=== PATIENT | male | born 1945 | race African-American/Black ===

== ENCOUNTER 2017-09-11 11:55 | Emergency (ER) | payer OTHER ==
[~2017-09-11 11:55] MED LIST: ALLO100 PO; AMIT25TA20 PO; ASPI81TA11 OR; BUME2TAB PO; COLC1TAB7 PO; HYDR50TA15 PO; LANTUSP SQ; LOSA50TA PO; METO50 PO; METO5TAB46 PO; NOVORP2 SQ; OMEP20TA39 PO; POTA20IN3 PO; ROSU40 PO; SERT100 PO
[2017-09-11 12:03] VITALS: BP 146/71; PULSE 91; RESP 20; TEMP 98.6; O2SAT 95
[2017-09-11] MEDS ORDERED: NOVOLOGP2 SQ (12:09)
[2017-09-11] MEDS ORDERED: LANTUS2P SQ (12:09)
[2017-09-11] MEDS ORDERED: UNKNOWN MEDS (12:09)
[2017-09-11 12:50] VITALS: BP 147/61; PULSE 71; RESP 20; O2SAT 98
[2017-09-11 12:52] LABS: AUTOMATED NEUTROPHIL # 5.8 TH/MM3 (1.8-7.7); BASOPHIL # 0.2 TH/MM3 (0-0.2); BASOPHIL % 1.8 % (0.0-2.0); EOSINOPHIL # 0.1 TH/MM3 (0-0.4); EOSINOPHIL % 1.2 % (0.0-4.0); HEMATOCRIT 43.8 % (39.0-51.0); HEMOGLOBIN 14.3 GM/DL (13.0-17.0); LYMPH % 23.1 % (9.0-44.0); MEAN CELL VOLUME 87.9 FL (80.0-100.0); MEAN CORPUSCULAR HEMOGLOBIN 28.6 PG (27.0-34.0); MEAN CORPUSCULAR HGB CONC 32.5 % (32.0-36.0); MONO % 5.5 % (0.0-8.0); MONOCYTE # 0.5 TH/MM3 (0-0.9); NEUT % 68.4 % (16.0-70.0); PLATELET COUNT 199 TH/MM3 (150-450); RED BLOOD COUNT 4.99 MIL/MM3 (4.50-5.90); RED CELL DISTRIBUTION WIDTH 13.8 % (11.6-17.2); WHITE BLOOD COUNT 8.6 TH/MM3 (4.0-11.0)
[2017-09-11 12:58] LABS: CHLORIDE 99 MEQ/L (98-107); SODIUM (NA) 136 MEQ/L (136-145)
[2017-09-11 13:02] LABS: ALBUMIN 3.2 GM/DL (3.4-5.0); BICARBONATE 29.9 MEQ/L (21.0-32.0); BLOOD UREA NITROGEN 27 MG/DL (7-18); CALCIUM 8.4 MG/DL (8.5-10.1); GLUCOSE,RANDOM 261 MG/DL (74-106)
[2017-09-11 13:05] LABS: ALT (GPT) 33 U/L (12-78); AST (GOT) 30 U/L (15-37); GLOMERULAR FILTRATION RATE 49 ML/MIN (>89)
[2017-09-11 13:07] LABS: TOTAL BILIRUBIN ADULT 0.4 MG/DL (0.2-1.0)
[2017-09-11 13:08] LABS: ALKALINE PHOSPHATASE 92 U/L (45-117)
[2017-09-11 13:10] LABS: TROPONIN I LESS THAN 0.02 NG/ML (0.02-0.05)
--- NOTE | 2017-09-11 13:24 | RADRPT ---
EXAM DATE/TIME: 09/11/2017 13:09 [facility] COMPARISON: CHEST SINGLE AP, April 23, 2016, 18:00. INDICATIONS : Right side pleuritic pain. MEDICAL HISTORY : Hypertension. Hypercholesterolemia. Diabetes mellitus type II. Arthritis. Sleep apnea.Prostate CA . Renal failure. SURGICAL HISTORY : Prostatectomy. ENCOUNTER: Initial ACUITY: 1 day PAIN SCORE: 8/10 LOCATION: Right chest FINDINGS: A single view of the chest demonstrates the lungs to be symmetrically aerated without evidence of mas s, infiltrate or effusion. The cardiomediastinal contours are unremarkable. Osseous structures are intact. CONCLUSION: The lungs are clear. Gerard Richard MD on September 11, 2017 at 13:23 Board Certified Radiologist. This report was verified electronically.
[2017-09-11 13:55] VITALS: BP 190/71; PULSE 82; RESP 20; O2SAT 96
[2017-09-11 14:29] VITALS: BP 149/65; PULSE 85; RESP 18; O2SAT 97
[2017-09-11] MEDS ORDERED: POTASSIUM CHLORIDE 10 MEQ CONTROLLED RELEASE TAB PO ONE (14:30)
[2017-09-11] MEDS ORDERED: IOHEXOL 350 MG/ML 10 ML VIAL (for RAD DIAG) IVCONTRAST ONE (15:10)
--- NOTE | 2017-09-11 15:30 | RADRPT ---
EXAM DATE/TIME: 09/11/2017 15:10 [facility] COMPARISON: No previous studies available for comparison. INDICATIONS : Right chest pain. Elevated D-dimer. IV CONTRAST: 65 cc Omnipaque 350 (iohexol) IV RADIATION DOSE: 19.77 CTDIvol (mGy) MEDICAL HISTORY : Renal failure, chronic. Myocardial infarction. Diabetes mellitus type 2.Hypertension. Seizures. Pros masterson cancer. SURGICAL HISTORY : Prostatectomy. ENCOUNTER: Initial ACUITY: 1 day PAIN SCALE: 6/10 LOCATION: Right chest TECHNIQUE: Volumetric scanning of the chest was performed using a pulmonary embolism protocol MIP images were re constructed. Using automated exposure control and adjustment of the mA and/or kV according to patien t size, radiation dose was kept as low as reasonably achievable to obtain optimal diagnostic quality images. DICOM format image data is available electronically for review and comparison. Follow-up recommendations for detected pulmonary nodules are based at a minimum on nodule size and pa tient risk factors according to Fleischner Society Guidelines. FINDINGS: PULMONARY ARTERIES: No filling defects are seen in the pulmonary arteries through the segmental level. LUNGS: Mild to moderate paraseptal emphysema. No significant focal parenchymal abnormality. PLEURAE: There is no pleural thickening or pleural effusion. MEDIASTINUM: There is good visualization of the great vessels of the middle mediastinum. No evidence of mediastin al or hilar adenopathy/mass. MUSCULOSKELETAL: Within normal limits for patient age. MISCELLANEOUS: The visualized upper abdominal organs demonstrate no acute abnormality. CONCLUSION: 1. No CT evidence for pulmonary embolism. 2. Mild to moderate paraseptal emphysema. 3. Otherwise, unremarkable CT examination of chest. Jose R Alvarado MD on September 11, 2017 at 15:25 Board Certified Radiologist. This report was verified electronically.
[2017-09-11 15:31] VITALS: BP 164/78; PULSE 88; RESP 20; O2SAT 95
--- NOTE | 2017-09-11 15:40 | PD ---
HPI Chief Complaint: Chest Pain Time Seen by Provider: 12:22 Travel History International Travel<30 days: No Contact w/Intl Traveler<30days: No Traveled to known affect area: No History of Present Illness HPI This 71-year-old male is complaining of right-sided chest pain. The pain is having has been present for about a week. It does get worse at times. It seems worse when he moves or when he takes a deep breath he has not been short of breath. He was a smoker many years ago but has not smoked for some time. He was a patient in the chest pain center couple of years ago and had a negative evaluation at that time. There is no history of heart disease. He did have some cough and congestion a week ago when he went to the [facility] and was put on an antibiotic and some cough medicine. PFSH Past Medical History Hx Anticoagulant Therapy: Yes (asa 81) Arthritis: Yes Asthma: No Autoimmune Disease: No Anxiety: No Depression: No Heart Rhythm Problems: No Cancer: Yes (PROSTATE) Cardiac Catheterization: No Cardiovascular Problems: Yes (htn on meds , [place] ?) High Cholesterol: Yes Chemotherapy: No Chest Pain: Yes Congestive Heart Failure: No COPD: No Cerebrovascular Accident: No Diabetes: Yes (type 2) Patient Takes Glucophage: No Diminished Hearing: No Endocrine: Yes Gastrointestinal Disorders: No Gout: Yes Genitourinary: Yes Hypertension: Yes Immune Disorder: No Implanted Vascular Access Dvce: No Kidney Stones: No Musculoskeletal: No Neurologic: No Psychiatric: Yes Reproductive: No Respiratory: Yes Migraines: Yes ( A CHILD) Myocardial Infarction: Yes Radiation Therapy: No Renal Failure: Yes (CRF) Seizures: Yes ([facility]) Sickle Cell Disease: No Sleep Apnea: Yes (prescribed CPAP) Thyroid Disease: No Past Surgical History Coronary Artery Bypass Graft: No Genitourinary Surgery: Yes (prostate cancer, prostatectomy) Joint Replacement: Yes Prostatectomy: Yes (W/REVISION) Other Surgery: Yes (right hand) Social History Alcohol Use: Yes (occas. mix drinks) Tobacco Use: No (QUIT 2001) Substance Use: No Allergies-Medications (Allergen,Severity, Reaction): Coded Allergies: Fish Containing Products (Unverified Allergy, Unknown, 09/11/17) Reported Meds & Prescriptions Reported Meds & Active Scripts Active Reported [Unknown Meds] Novolog Inj (Insulin Aspart) 1,000 Unit/10 Ml Vial 30 Units SQ TID Lantus Inj (Insulin Glargine) 1,000 Unit/10 Ml Vial 55 Units SQ TID Review of Systems General / Constitutional: No: Fever, Chills Eyes: No: Diploplia, Blurred Vision HENT: No: Headaches, Vertigo Cardiovascular: Positive: Chest Pain or Discomfort, No: Palpitations Respiratory: Positive: Pleuritic Pain, No: Cough, Shortness of Breath Gastrointestinal: No: Nausea, Vomiting Genitourinary: No: Urgency, Frequency Musculoskeletal: No: Myalgias Skin: No Rash, No Itching Endocrine: No: Heat Intolerance, Cold Intolerance Hematologic/Lymphatic: No: Easy Bruising Physical Exam Narrative GENERAL: Well-developed male SKIN: Focused skin assessment warm/dry. HEAD: Atraumatic. Normocephalic. EYES: Pupils equal and round. No scleral icterus. No injection or drainage. ENT: No nasal bleeding or discharge. Mucous membranes pink and moist. NECK: Trachea midline. No JVD. CARDIOVASCULAR: Regular rate and rhythm. No murmur appreciated. RESPIRATORY: No accessory muscle use. Clear to auscultation. Breath sounds equal bilaterally. There is some mild right-sided chest wall tenderness GASTROINTESTINAL: Abdomen soft, non-tender, nondistended. Hepatic and splenic margins not palpable. MUSCULOSKELETAL: No obvious deformities. No clubbing. No cyanosis. No edema. NEUROLOGICAL: Awake and alert. No obvious cranial nerve deficits. Motor grossly within normal limits. Normal speech. PSYCHIATRIC: Appropriate mood and affect; insight and judgment normal. Data Data Last Documented VS Vital Signs Date Time Temp Pulse Resp B/P (MAP) Pulse Ox O2 Delivery O2 Flow Rate FiO2 09/11/17 15:31 88 20 164/78 (106) 95 09/11/17 14:29 Room Air 09/11/17 12:03 98.6 Orders Orders Complete Blood Count With Diff (09/11/17 12:39) Comprehensive Metabolic Panel (09/11/17 12:39) Troponin I (09/11/17 12:39) D-Dimer (09/11/17 12:39) Chest, Single Ap (09/11/17 12:39) Ct Pulmonary Angiogram (09/11/17 14:19) Potassium Chloride (Kcl) (09/11/17 14:30) Electrocardiogram (09/11/17 12:00) Labs Laboratory Tests Test 2/20/18 12:45 White Blood Count 8.6 TH/MM3 Red Blood Count 4.99 MIL/MM3 Hemoglobin 14.3 GM/DL Hematocrit 43.8 % Mean Corpuscular Volume 87.9 FL Mean Corpuscular Hemoglobin 28.6 PG Mean Corpuscular Hemoglobin Concent 32.5 % Red Cell Distribution Width 13.8 % Platelet Count 199 TH/MM3 Mean Platelet Volume 12.0 FL Neutrophils (%) (Auto) 68.4 % Lymphocytes (%) (Auto) 23.1 % Monocytes (%) (Auto) 5.5 % Eosinophils (%) (Auto) 1.2 % Basophils (%) (Auto) 1.8 % Neutrophils # (Auto) 5.8 TH/MM3 Lymphocytes # (Auto) 2.0 TH/MM3 Monocytes # (Auto) 0.5 TH/MM3 Eosinophils # (Auto) 0.1 TH/MM3 Basophils # (Auto) 0.2 TH/MM3 CBC Comment DIFF FINAL Differential Comment D-Dimer Quantitative (PE/DVT) 0.63 MG/L FEU Blood Urea Nitrogen 27 MG/DL Creatinine 1.70 MG/DL Random Glucose 261 MG/DL Total Protein 8.0 GM/DL Albumin 3.2 GM/DL Calcium Level 8.4 MG/DL Alkaline Phosphatase 92 U/L Aspartate Amino Transf (AST/SGOT) 30 U/L Alanine Aminotransferase (ALT/SGPT) 33 U/L Total Bilirubin 0.4 MG/DL Sodium Level 136 MEQ/L Potassium Level 3.3 MEQ/L Chloride Level 99 MEQ/L Carbon Dioxide Level 29.9 MEQ/L Anion Gap 7 MEQ/L Estimat Glomerular Filtration Rate 49 ML/MIN Troponin I LESS THAN 0.02 NG/ML [facility] Medical Decision Making Medical Screen Exam Complete: Yes Emergency Medical Condition: Yes Medical Record Reviewed: Yes Differential Diagnosis Differential includes chest wall pain, pulmonary embolus, pneumonia Narrative Course EKG is unchanged from previous EKG. His troponin is normal. Clinically this pain is not at all suggestive of coronary artery disease. The d-dimer had been done to screen for possible PE and came back at 0.63. Because of this a CTA was ordered and a CTA is negative for pulmonary embolus. He is noted to have some emphysematous changes. Impression is pleurisy. Diagnosis Primary Impression: Pleurisy without effusion Additional Instructions: Take Tylenol for pain Disposition: DISCHARGE HOME Condition: Stable Yariel Coronado MD Sep 11, 2017 15:40
--- NOTE | 2017-09-12 16:00 | EKG ---
Date Performed: 09/11/2017 Time Performed: 12:00:19 PTAGE: 71 years EKG: ATRIAL FIBRILLATION BORDERLINE LEFT AXIS DEVIATION NONSPECIFIC T-WAVE ABNORMALITY ABNORMAL RHYTHM ECG PREVIOUS TRACING : 04/23/2016 17.56 DOCTOR: Oscar Platt Interpretating Date/Time 09/12/2017 15:57:53
== END 2017-09-11 15:59 | disposition home or self-care (01) ==
LOC: PHED 11:55
DX: R09.1 Pleurisy (principal); I48.91 Unspecified atrial fibrillation; I10 Essential (primary) hypertension; E11.9 Type 2 diabetes mellitus without complications; N18.9 Chronic kidney disease, unspecified; Z87.891 Personal history of nicotine dependence; Z79.01 Long term (current) use of anticoagulants
CPT/HCPCS: 71045; 71275; 80053; 84484; 85025; 85379; 93005; 99285; Q9967